=== PATIENT | female | born 1990 | race African-American/Black ===

== ENCOUNTER 2022-06-04 15:29 | Emergency (ER) | payer OTHER ==
[~2022-06-04] VITALS: Ht 154.9 cm; Wt 48.5 kg
[2022-06-04 15:37] VITALS: BP 129/81
--- NOTE | 2022-06-04 18:08 | NUR ---
PT WAS PLACED IN A GOWN AND I WAS PRESENT FOR THE BREAST EXAM WITH DOCTOR FERNANDO.
== END 2022-06-04 17:22 | disposition home or self-care (01) ==
LOC: ER 15:38
DX: N64.4 Mastodynia (principal); Z60.2 Problems related to living alone

== ENCOUNTER 2022-06-14 10:17 | Emergency (ER) | payer OTHER ==
[~2022-06-14] VITALS: Ht 154.9 cm; Wt 49.9 kg
[2022-06-14 10:29] VITALS: BP 113/82
--- NOTE | 2022-06-14 10:32 | NUR ---
pt seen by md at bedside for eval
--- NOTE | 2022-06-14 11:00 | NUR ---
HEAT TREAT INSPECTOR AT BEDSIDE FOR XRAY
[2022-06-14] MEDS ORDERED: CARI350T PO (11:57)
--- NOTE | 2022-06-14 12:05 | NUR ---
Sling applied to affected area by RANDY Mcadams. After Care instructions given. All questions answered Patient discharged to home in stable condition. Written and verbal after care instructions given. Patient verbalizes understanding of instruction.
== END 2022-06-14 12:09 | disposition home or self-care (01) ==
LOC: ER 10:20
DX: S43.402A Unspecified sprain of left shoulder joint, initial encounter (principal); S13.4XXA Sprain of ligaments of cervical spine, initial encounter; Z60.2 Problems related to living alone; V47.9XXA Unspecified car occupant injured in collision with fixed or stationary object in traffic accident, initial encounter; Y93.89 Activity, other specified; Y92.89 Other specified places as the place of occurrence of the external cause; Y99.8 Other external cause status
CPT/HCPCS: 72050-TC; 73030-TC